=== PATIENT | male | born 1995 | race Two or more races ===

== ENCOUNTER 2017-10-31 13:16 | Emergency (ER) | payer OTHER ==
[2017-10-31 13:19] VITALS: BP 145/73; TEMP 98.1
[2017-10-31] MEDS ORDERED: IPRATROPIUM/ALBUTEROL 3 ML DEYVIAL IH ONE (13:23)
[2017-10-31] MEDS ORDERED: IPRATROPIUM/ALBUTEROL 3 ML DEYVIAL ONE (13:23)
[2017-10-31] MEDS ORDERED: ALBUTEROL 3 ML DEYVIAL IH ONE (13:38)
[2017-10-31] MEDS ORDERED: predniSONE 20 MG TAB PO ONE (13:38)
--- NOTE | 2017-10-31 13:40 | EDPHY ---
H & P Time Seen by Provider: 10/31/17 13:32 HPI/ROS: CHIEF COMPLAINT: Asthma attack HISTORY OF PRESENT ILLNESS: Patient ran out of his Advair and albuterol. It was at work and began getting wheezy and short of breath. Symptoms moderate. Presents to the ED without hemoptysis or fever or chills. Worse with exertion. Symptoms lasted 2 hr proximally prior to arrival. He was last on oral prednisone 2 years ago. REVIEW OF SYSTEMS: Eye: no change in vision ENT: no sore throat Cardiac: no chest pain or syncope Pulmonary: HPI Abdomen: no vomiting, diarrhea, abdominal pain Musculoskeletal: Patient describes intermittent almost daily torso pain which he describes cramps in his abdomen and chest and does not currently present but he brought it up to ask what he should do Skin: no rash or urticaria Neuro: no headache Constitutional: no fever : no urinary symptoms A comprehensive 10 point review of systems is otherwise negative aside from elements mentioned in the history of present illness. PAST MEDICAL HISTORY: Asthma Social history: Works in [employer] General Appearance: Alert and conversant, cooperative. Eyes: No scleral icterus. ENT, Mouth: Normal mucous membranes. No angioedema, normal pharynx. Respiratory: Bilateral expiratory wheezing but speaks in full sentences and no retractions. Cardiovascular: Regular rate and rhythm. Gastrointestinal: Abdomen is soft and non tender. Neurological: Alert, face symmetric, normal motor and sensory in extremities. Skin: Warm and dry, no rashes. Musculoskeletal: No peripheral edema. No calf tenderness. Psychiatric: Not agitated. Emergency Department course/MDM: DuoNeb, albuterol neb, oral prednisone discussed and consented. 3 day course of oral prednisone. Does not have signs or symptoms to suggest high risk for CHF, pulmonary embolism, pneumonia, pneumothorax. He has prescriptions for his Advair and albuterol which he can fell this afternoon. Smoking Status: Never smoked Constitutional: Initial Vital Signs Temperature (C) 36.7 C 10/31/17 13:17 Heart Rate 73 10/31/17 13:17 Respiratory Rate 24 H 10/31/17 13:17 Blood Pressure 145/73 H 10/31/17 13:17 O2 Sat (%) 97 10/31/17 13:17 O2 Delivery Mode Room Air Allergies/Adverse Reactions: No Known Allergies Allergy (Unverified 10/31/17 13:19) Home Medications: Medication Instructions Recorded Advair 100/50 (*) 10/31/17 predniSONE [prednisone 20mg (RX)] 40 mg PO DAILY 2 Days tab 10/31/17 Medical Decision Making Differential Diagnosis: Differential diagnosis considered for shortness of breath including but not limited to pulmonary infectious process, COPD, asthma, pulmonary embolus and congestive heart failure. - Data Points Medications Given: Discontinued Medications Albuterol (Proventil Neb) 3 ml IH EDNOW ONE Stop: 10/31/17 13:39 Last Admin: 10/31/17 13:46 Dose: 3 ml Albuterol/Ipratropium (Duoneb) 3 ml IH EDNOW ONE Stop: 10/31/17 13:24 Last Admin: 10/31/17 13:24 Dose: 3 ml Prednisone (Prednisone) 60 mg PO EDNOW ONE Stop: 10/31/17 13:39 Last Admin: 10/31/17 13:47 Dose: 60 mg Departure - Departure Disposition: Home, Routine, Self-Care Clinical Impression: Exacerbation of asthma Qualifiers: Asthma severity: moderate Asthma persistence: unspecified Qualified Code(s): J45.901 - Unspecified asthma with (acute) exacerbation Condition: Good Instructions: Asthma (ED) Referrals: Patient,NotPresent [Primary Care Provider] - As per Instructions (Dr. Altman your primary care doctor in [place]) Prescriptions: predniSONE [prednisone 20mg (RX)] 40 mg PO DAILY 2 Days tab
[2017-10-31 13:49] VITALS: PULSE 74; RESP 16; O2SAT 99
== END 2017-10-31 13:55 | disposition home or self-care (01) ==
DX: J45.901 Unspecified asthma with (acute) exacerbation (principal)
CPT/HCPCS: J7512; J7613